=== PATIENT | male | born 1945 | race Caucasian/White ===

== ENCOUNTER 2021-05-16 07:40 | Day surgery (SDC) | payer MEDICARE ==
[~2021-05-16] VITALS: Ht 177.8 cm; Wt 86.8 kg
[~2021-05-16 07:40] MED LIST: ASPIRIN 81 MG CHEWABLE TABLET PO ONE; DIAZEPAM 5 MG TABLET PO ONE; DiphenhydrAMINE HCL 50 MG CAPSULE PO ONE; SODIUM CHLORIDE 0.9% 1,000 ML IV SCH
[2021-05-16] MEDS ORDERED: SODIUM CHLORIDE 0.9% 1,000 ML ONE (07:50)
[2021-05-16] MEDS ORDERED: DIAZ5TAB5 PO (08:14)
[2021-05-16] MEDS ORDERED: NITR0.4T52 SL (08:14)
[2021-05-16] MEDS ORDERED: OMEG-135 PO (08:14)
[2021-05-16] MEDS ORDERED: AMLO2.5T96 PO (08:14)
[2021-05-16] MEDS ORDERED: ASPI-1450 PO (08:14)
[2021-05-16] MEDS ORDERED: CHOL200016 PO (08:14)
[2021-05-16] MEDS ORDERED: TAMS-13 PO (08:14)
[2021-05-16] MEDS ORDERED: ATOR40TA28 PO (08:14)
[2021-05-16] MEDS ORDERED: LOSA50TA37 PO (08:14)
[2021-05-16] MEDS ORDERED: METF-960 PO (08:14)
[2021-05-16] MEDS ORDERED: METO50 PO (08:14)
[2021-05-16] MEDS ORDERED: GABA-1181 PO (08:14)
[2021-05-16] MEDS ORDERED: CLOP75TA60 PO (08:14)
[2021-05-16] MEDS ORDERED: ACET1TAB PO (08:14)
[2021-05-16] MEDS ORDERED: ASPIRIN 81 MG CHEWABLE TABLET ONE (08:18)
[2021-05-16] MEDS ORDERED: DiphenhydrAMINE HCL 50 MG CAPSULE ONE (08:18)
[2021-05-16] MEDS ORDERED: DIAZEPAM 5 MG TABLET ONE (08:18)
[2021-05-16 08:49] LABS: GLUCOMETER DEV NAME(LOC) SDS.; GLUCOSE,POINT OF CARE 129 MG/DL (70-110)
[2021-05-16] MEDS ORDERED: IOHEXOL 300 MG/ML 150 ML VIAL ONE (08:49)
[2021-05-16] MEDS ORDERED: IOHEXOL 300 MG/ML 100 ML VIAL ONE (08:49)
[2021-05-16] MEDS ORDERED: SODIUM BICARBONATE 50 MEQ/50 ML VIAL ONE (08:49)
[2021-05-16] MEDS ORDERED: LIDOCAINE/PF 1% 30 ML VIAL ONE ×2 (08:49→10:56)
[2021-05-16] MEDS ORDERED: HEPARIN SODIUM 1000 UNITS/NS 1,000 ML ONE (08:49)
[2021-05-16] MEDS ORDERED: IOHEXOL 300 MG/ML 50 ML VIAL ONE (08:49)
[2021-05-16 11:02] VITALS: BP 168/74
[2021-05-16] MEDS ORDERED: FentaNYL CITRATE PF 100 MCG/2 ML VIAL ONE (11:14)
[2021-05-16] MEDS ORDERED: MIDAZOLAM HCL 2 MG/2 ML VIAL ONE (11:14)
[2021-05-16] MEDS ORDERED: FentaNYL CITRATE PF 100 MCG/2 ML VIAL IVP ONE ×2 (11:30→11:45)
[2021-05-16] MEDS ORDERED: IOHEXOL 300 MG/ML 150 ML VIAL IARTER ONE (11:30)
[2021-05-16] MEDS ORDERED: HEPARIN SODIUM 1000 UNITS/NS 1,000 ML IARTER ONE (11:30)
[2021-05-16] MEDS ORDERED: MIDAZOLAM HCL 2 MG/2 ML VIAL IVP ONE ×2 (11:30→11:45)
[2021-05-16] MEDS ORDERED: LIDOCAINE 1% 30 ML/SOD BICARB 8.4% 4 ML SQ ONE (11:30)
[2021-05-16 11:54] VITALS: BP 156/69
== END 2021-05-16 15:00 | disposition home or self-care (01) ==
LOC: CATHLAB 07:40
PROVIDERS: ATTEND Internal Medicine Interventional Cardiology
DX: I25.10 Atherosclerotic heart disease of native coronary artery without angina pectoris (principal); I10 Essential (primary) hypertension; E78.5 Hyperlipidemia, unspecified; E11.9 Type 2 diabetes mellitus without complications; Z98.890 Other specified postprocedural states; Z95.5 Presence of coronary angioplasty implant and graft; Z79.899 Other long term (current) drug therapy
CPT/HCPCS: 82962; 93005; 93458; 99152; C1760; J1644; J2250; J3010; J3490 ×2; J7030; Q9967